=== PATIENT | male | born 1975 | race Caucasian/White ===

== ENCOUNTER 2016-11-25 17:15 | Observation (INO) | payer OTHER ==
[2016-11-25] MEDS ORDERED: ASPIRIN 81 MG PO STA (17:36)
[2016-11-25] MEDS ORDERED: NITROGLYCERIN OINT 1 INCH/GM PACKET TOPICAL STA (17:36)
--- NOTE | 2016-11-25 17:38 | ED ---
General Adult HPI - General Chief complaint: Chest Pain Stated complaint: Chest Pain Time Seen by Provider: 11/25/16 17:20 Source: patient, RN notes reviewed Mode of arrival: ambulatory Limitations: no limitations - History of Present Illness Initial comments: This is a 41-year-old male who presents emergency department with past history significant for diabetes and he states family history heart disease. Patient states he's been having intermittent chest pain for 2 months. In today his family doctor wanted him to come to the hospital to be evaluated and be admitted for his chest pain. Patient states he has some tingling on his left arm occasionally with chest pain. Patient states he doesn't have any shortness of breath or diaphoresis with chest pain. Patient denies any nausea or chest pain. Patient states he has a constant underlying soreness across his chest that is still there currently. Patient denies any abdominal pain patient denies any nausea or vomiting. Patient denies any fever chills or cough. - Related Data Home Medications Medication Instructions Recorded Confirmed Glimepiride [Amaryl] 1 mg PO BID@329,192911/25/16 11/25/16 Pregabalin [Lyrica] 50 mg PO TID@329,1129,192911/25/16 11/25/16 metFORMIN HCL [Glucophage] 1,000 mg PO BID@11/25/16 11/25/16 Allergies Allergy/AdvReac Type Severity Reaction Status Date / Time Penicillins Allergy Rash/Hives Verified 11/25/16 17:49 Review of Systems ROS Statement: Those systems with pertinent positive or pertinent negative responses have been documented in the HPI. ROS Other: All systems not noted in ROS Statement are negative. Past Medical History Past Medical History: Coronary Artery Disease (CAD), Diabetes Mellitus, Hyperlipidemia, Hypertension Additional Past Medical History / Comment(s): Neuropathy History of Any Multi-Drug Resistant Organisms: None Reported Past Surgical History: Tonsillectomy Additional Past Surgical History / Comment(s): Carpal Tunnel surgery Past Psychological History: No Psychological Hx Reported Smoking Status: Never smoker Past Alcohol Use History: None Reported Past Drug Use History: None Reported General Exam - General Exam Comments Initial Comments: GENERAL: Patient is well-developed and well-nourished. Patient is nontoxic and well- hydrated and is in mild distress. ENT: Neck is soft and supple. No significant lymphadenopathy is noted. Oropharynx is clear. Moist mucous membranes. Neck has full range of motion without eliciting any pain. . EYES: The sclera were anicteric and conjunctiva were pink and moist. Extraocular movements were intact and pupils were equal round and reactive to light. Eyelids were unremarkable. PULMONARY: Unlabored respirations. Good breath sounds bilaterally. No audible rales rhonchi or wheezing was noted. CARDIOVASCULAR: There is a regular rate and rhythm without any murmurs gallops or rubs. ABDOMEN: Soft and nontender with normal bowel sounds. No palpable organomegaly was noted. There is no palpable pulsatile mass. SKIN: Skin is clear with no lesions or rashes and otherwise unremarkable. NEUROLOGIC: Patient is alert and oriented x3. Cranial nerves II through XII are grossly intact. Motor and sensory are also intact. Normal speech, volume and content. Symmetrical smile. MUSCULOSKELETAL: Normal extremities with adequate strength and full range of motion. No lower extremity swelling or edema. No calf tenderness. LYMPHATICS: No significant lymphadenopathy is noted PSYCHIATRIC: Normal psychiatric evaluation. Normal interpersonal interactions appears functionally intact in deals appropriately with others. No signs of depression. No signs of anxiety. Limitations: no limitations Course Vital Signs 11/25/16 11/25/16 17:19 18:22 Temperature 97.9 F Pulse Rate 89 86 Respiratory 18 20 Rate Blood Pressure 179/104 151/80 O2 Sat by Pulse 95 95 Oximetry Medical Decision Making - Medical Decision Making EKG shows normal sinus rhythm at 70 bpm OK interval 160 QRS is 106 Q-T intervals 376 QTC is 428. Patient's EKG shows no ST segment elevation or depression or T wave abnormalities are noted. Patient's chest x-ray shows no acute abnormality. Spoke to Dr. Clemente he agreed to admit the patient admitted the patient I wrote admitting orders - Lab Data Result diagrams: 11/25/16 17:30 11/25/16 17:30 Lab Results 11/25/16 11/25/16 11/25/16 Range/Units 17:30 17:30 17:30 WBC 10.7 H (3.8-10.6) k/uL RBC 5.52 (4.30-5.90) m/uL Hgb 15.7 (13.0-17.5) gm/dL Hct 46.1 (39.0-53.0) % MCV 83.6 (80.0-100.0) fL MCH 28.4 (25.0-35.0) pg MCHC 33.9 (31.0-37.0) g/dL RDW 13.3 (11.5-15.5) % Plt Count 196 (150-450) k/uL Neutrophils % 68 % Lymphocytes % 22 % Monocytes % 4 % Eosinophils % 3 % Basophils % 1 % Neutrophils # 7.3 (1.3-7.7) k/uL Lymphocytes # 2.4 (1.0-4.8) k/uL Monocytes # 0.5 (0-1.0) k/uL Eosinophils # 0.3 (0-0.7) k/uL Basophils # 0.1 (0-0.2) k/uL PT (9.0-12.0) sec INR (<1.2) APTT (22.0-30.0) sec Sodium 140 (137-145) mmol/L Potassium 4.4 (3.5-5.1) mmol/L Chloride 104 (98-107) mmol/L Carbon Dioxide 26 (22-30) mmol/L Anion Gap 10 mmol/L BUN 15 (9-20) mg/dL Creatinine 0.87 (0.66-1.25) mg/dL Est GFR (MDRD) Af Amer >60 (>60 ml/min/1.73 sqM) Est GFR (MDRD) Non-Af >60 (>60 ml/min/1.73 sqM) Glucose 192 H (74-99) mg/dL Calcium 9.4 (8.4-10.2) mg/dL Magnesium 1.7 (1.6-2.3) mg/dL Total Bilirubin 0.6 (0.2-1.3) mg/dL AST 25 (17-59) U/L ALT 34 (21-72) U/L Alkaline Phosphatase 66 (38-126) U/L Total Creatine Kinase 63 (55-170) U/L CK-MB (CK-2) 1.1 (0.0-2.4) ng/mL CK-MB (CK-2) Rel Index 1.7 Troponin I <0.012 (0.000-0.034) ng/mL Total Protein 7.2 (6.3-8.2) g/dL Albumin 4.4 (3.5-5.0) g/dL 11/25/16 Range/Units 17:30 WBC (3.8-10.6) k/uL RBC (4.30-5.90) m/uL Hgb (13.0-17.5) gm/dL Hct (39.0-53.0) % MCV (80.0-100.0) fL MCH (25.0-35.0) pg MCHC (31.0-37.0) g/dL RDW (11.5-15.5) % Plt Count (150-450) k/uL Neutrophils % % Lymphocytes % % Monocytes % % Eosinophils % % Basophils % % Neutrophils # (1.3-7.7) k/uL Lymphocytes # (1.0-4.8) k/uL Monocytes # (0-1.0) k/uL Eosinophils # (0-0.7) k/uL Basophils # (0-0.2) k/uL PT 10.8 (9.0-12.0) sec INR 1.1 (<1.2) APTT 24.7 (22.0-30.0) sec Sodium (137-145) mmol/L Potassium (3.5-5.1) mmol/L Chloride (98-107) mmol/L Carbon Dioxide (22-30) mmol/L Anion Gap mmol/L BUN (9-20) mg/dL Creatinine (0.66-1.25) mg/dL Est GFR (MDRD) Af Amer (>60 ml/min/1.73 sqM) Est GFR (MDRD) Non-Af (>60 ml/min/1.73 sqM) Glucose (74-99) mg/dL Calcium (8.4-10.2) mg/dL Magnesium (1.6-2.3) mg/dL Total Bilirubin (0.2-1.3) mg/dL AST (17-59) U/L ALT (21-72) U/L Alkaline Phosphatase (38-126) U/L Total Creatine Kinase (55-170) U/L CK-MB (CK-2) (0.0-2.4) ng/mL CK-MB (CK-2) Rel Index Troponin I (0.000-0.034) ng/mL Total Protein (6.3-8.2) g/dL Albumin (3.5-5.0) g/dL Disposition Clinical Impression: Chest pain Disposition: ADMITTED IP TO THIS HOSP Referrals: Susan Jones MD [Primary Care Provider] - 1-2 days Time of Disposition: 18:57
[2016-11-25 17:49] LABS: Basophils # (A) 0.1 k/uL (0-0.2); Basophils % (A) 1 %; CH 27.8; CHCM 33.4; Eosinophils # (A) 0.3 k/uL (0-0.7); Eosinophils % (A) 3 %; HCT 46.1 % (39.0-53.0); HDW 2.67; HGB 15.7 gm/dL (13.0-17.5); Luc # (Auto) 0.16; Luc % (Auto) 2; Lymphocytes # (A) 2.4 k/uL (1.0-4.8); Lymphocytes % (A) 22 %; MCH 28.4 pg (25.0-35.0); MCHC 33.9 g/dL (31.0-37.0); MCV 83.6 fL (80.0-100.0); Monocytes # (A) 0.5 k/uL (0-1.0); Monocytes % (A) 4 %; Neutrophils # (A) 7.3 k/uL (1.3-7.7); Neutrophils % (A) 68 %; RBC 5.52 m/uL (4.30-5.90); RDW 13.3 % (11.5-15.5); WBC 10.7 k/uL (3.8-10.6); WBC (Perox) 10.39
[2016-11-25 17:59] LABS: INR 1.1 (<1.2); Partial Thromboplastin Time 24.7 sec (22.0-30.0); Prothrombin Time 10.8 sec (9.0-12.0)
--- NOTE | 2016-11-25 18:16 | XR ---
EXAMINATION TYPE: XR chest 2V DATE OF EXAM: 11/25/2016 COMPARISON: NONE HISTORY: Chest pain TECHNIQUE: Frontal and lateral views of the chest are obtained. FINDINGS: There is linear density at the left lung base. The other lung [place] are clear. Heart and mediastinum are normal. There are no hilar masses. IMPRESSION: Subsegmental atelectasis at the left lung base. Normal heart.
[2016-11-25 18:17] LABS: ALT 34 U/L (21-72); AST 25 U/L (17-59); Alkaline Phosphatase 66 U/L (38-126); Anion Gap 10 mmol/L; Blood Urea Nitrogen 15 mg/dL (9-20); Calcium 9.4 mg/dL (8.4-10.2); Carbon Dioxide 26 mmol/L (22-30); Chloride 104 mmol/L (98-107); Glucose 192 mg/dL (74-99); Magnesium 1.7 mg/dL (1.6-2.3); Non-African American GFR(MDRD) >60 (>60 ml/min/1.73 sqM); Potassium 4.4 mmol/L (3.5-5.1); Sodium 140 mmol/L (137-145); Total Bilirubin 0.6 mg/dL (0.2-1.3); Total Protein 7.2 g/dL (6.3-8.2)
[2016-11-25 18:25] LABS: Creatine Kinase 63 U/L (55-170)
[2016-11-25 18:37] LABS: Creatine Kinase MB 1.1 ng/mL (0.0-2.4); Troponin I <0.012 ng/mL (0.000-0.034)
[2016-11-25] MEDS ORDERED: NITROGLYCERIN SL TABS 0.4 MG TAB SUBLINGUAL PRN (18:58)
[2016-11-25 20:47] VITALS: RESP 18
[2016-11-25 20:57] LABS: Glucose,Whole Blood 118 mg/dL (75-99)
[2016-11-25 23:56] LABS: Creatine Kinase 52 U/L (55-170)
[2016-11-26 00:09] LABS: Creatine Kinase MB 0.8 ng/mL (0.0-2.4); Troponin I <0.012 ng/mL (0.000-0.034)
[2016-11-26] MEDS: PREGABALIN 50 MG CAP PO SCH ×2 (06:33→08:36)
[2016-11-26] MEDS: NITROGLYCERIN OINT 1 INCH/GM PACKET TOPICAL SCH ×2 (06:33→12:42)
[2016-11-26] MEDS: INSULIN LISPRO (humaLOG) 300 UNIT/3 ML VIAL SQ SCH ×3 (06:33→12:02)
[2016-11-26 06:39] LABS: Glucose,Whole Blood 105 mg/dL (75-99)
--- NOTE | 2016-11-26 07:31 | CONS ---
CONSULTATION A 41-year-old, obese, type 2 diabetic who came into the hospital upon referral by his primary care physician because he was having chest pain for nearly 3 weeks on and off, very nondescript in a random fashion without obvious relations to physical activity. He did not have any pain after arrival but complained of some tingling in the left arm, no shortness of breath or nausea. Troponins are normal. He is resting comfortably without symptoms. He has history of diabetes with some neuropathy. Denies any chest pain at the time of my evaluation. PAST MEDICAL HISTORY: 1. Type 2 diabetes. 2. Hypertension. 3. Possibly some peripheral neuropathy. MEDICATIONS: At home include Amaryl 1 mg b.i.d., metformin 1000 mg b.i.d., Lyrica 50 mg t.i.d. ALLERGY: PENICILLIN. REVIEW OF SYSTEMS: Unremarkable other than the above-mentioned facts. Specifically does not have any hematemesis or melena. Genitourinary symptoms, fever, chills or cough with expectoration. PHYSICAL EXAMINATION: His blood pressure is 118/70, pulse rate is 70 per minute, regular. HEENT: Unremarkable. Fundus was not examined by me. Neck is supple. No JVD. I do not hear a carotid bruit. Heart exam reveals S1, S2 heard normally without a rub, murmur or gallop. Lungs are clear. Abdomen is soft, nontender. Lower extremities reveal normal pulses. No edema. Central nervous system is normal. EKG revealed sinus mechanism with a J-point prominence and no acute changes. Nonspecific T-wave flattening was noted. Initial EKG was unremarkable. LABORATORY DATA: Revealed that troponins are normal. IMPRESSION: 1. Atypical chest pain. 2. Obesity. 3. Type 2 diabetes mellitus. RECOMMENDATION: I am recommending that we increase activity, perform an echocardiogram and a stress echo and if these are normal, he can be discharged. Physical exam was unremarkable. EKG does not show any significant changes. Minor nonspecific changes were noted. Thank you very much for the consult. MMODL / IJN: [id number] /
[2016-11-26 07:33] VITALS: BP 154/94; PULSE 62; TEMP 98.1
[2016-11-26 07:34] LABS: Cholesterol 154 mg/dL (<200); HDL Cholesterol 47 mg/dL (40-60)
[2016-11-26 08:09] LABS: Creatine Kinase 46 U/L (55-170)
[2016-11-26 08:21] LABS: Creatine Kinase MB 0.8 ng/mL (0.0-2.4); Troponin I <0.012 ng/mL (0.000-0.034)
[2016-11-26] MEDS ORDERED: ASPIRIN 325 MG TAB PO SCH (09:00)
[2016-11-26 12:01] LABS: Glucose,Whole Blood 121 mg/dL (75-99)
--- NOTE | 2016-11-26 12:24 | ECHOF ---
Referral Reason:chest pain MEASUREMENTS -------- HEIGHT: 177.8 cm WEIGHT: 118.8 kg BP: 154/94 RVIDd: 2.2 cm (< 3.3) IVSd: 1.2 cm (0.6 - 1.1) LVIDd: 4.0 cm (3.9 - 5.3) LVPWd: 1.2 cm (0.6 - 1.1) IVSs: 1.9 cm LVIDs: 2.8 cm LVPWs: 1.9 cm LAESV Index (A-L): 21.51 ml/m Ao Diam: 3.5 cm (2.0 - 3.7) AV Cusp: 2.1 cm (1.5 - 2.6) LA Diam: 4.0 cm (2.7 - 3.8) MV EXCURSION: 15.271 mm (> 18.000) MV EF SLOPE: 64 mm/s (70 - 150) EPSS: 1.4 cm MV E [place]: 0.97 m/s MV DecT: 230 ms MV A [place]: 0.89 m/s MV E/A Ratio: 1.09 RAP: 5.00 mmHg RVSP: 14.63 mmHg FINDINGS -------- Sinus rhythm with extra systolic beats. This was a technically adequate study. The left ventricular size is normal. There is mild concentric left ventricular hypertrophy. Overall left ventricular systolic function is normal with, an EF between 55 - 60 %. The right ventricle is normal in size and function. Normal LA size by volume 22+/-6 ml/m2. The right atrium is normal in size. Aortic valve is trileaflet and is mildly thickened. There is no evidence of aortic regurgitation. There is no evidence of aortic stenosis. The mitral valve leaflets are mildly thickened. There is trace mitral regurgitation. Trace tricuspid regurgitation present. Right ventricular systolic pressure is normal at < 35 mmHg. There is no evidence of pulmonary hypertension. The pulmonic valve was not well visualized. The aortic root size is normal. Normal inferior vena cava with normal inspiratory collapse consistent with estimated right atrial pressure of 5 mmHg. The pericardium is normal. There is no pericardial effusion. CONCLUSIONS -------- 1. Sinus rhythm with extra systolic beats. 2. Trace tricuspid regurgitation present. 3. Right ventricular systolic pressure is normal at < 35 mmHg. 4. There is no evidence of pulmonary hypertension. 5. The pulmonic valve was not well visualized. 6. The aortic root size is normal. 7. This was a technically adequate study. 8. The left ventricular size is normal. 9. There is mild concentric left ventricular hypertrophy. 10. Overall left ventricular systolic function is normal with, an EF between 55 - 60 %. 11. Normal LA size by volume 22+/-6 ml/m2. 12. Aortic valve is trileaflet and is mildly thickened. 13. The mitral valve leaflets are mildly thickened. 14. There is trace mitral regurgitation. LUMBER PILER OPERATOR: Richmond Luna RDCS
--- NOTE | 2016-11-26 12:53 | ECHOS ---
STRESS ECHOCARDIOGRAM STRESS ECHOCARDIOGRAM: INDICATIONS: Chest pain. MEDICATIONS:: Metformin, Lyrica, Amaryl. BASELINE HEART RATE: 71 BASELINE BLOOD PRESSURE: 147/76 MAXIMUM HEART RATE: 124 MAXIMUM BLOOD PRESSURE: 199/112 85% MPHR: 151 100% MPHR: 178 METS: 8.5 MAXIMUM STAGE REACHED: 3 TOTAL EXERCISE TIME: 7:00 CLINICAL INFORMATION: Baseline EKG revealed a normal sinus rhythm without significant ST-T changes. Patient walked on a standard Nicholas protocol for 7 minutes. Achieved a maximum heart rate of 124 beats per minute, developed fatigue and shortness of breath and therefore stress test was stopped. He did not have angina. There was no arrhythmia. EKG did not reveal any ST-segment changes to indicate ischemia. This is a inconclusive stress test with inadequate chronotropic response and decreased exercise capacity. Baseline echo images revealed normal wall motion and wall thickening of all segments. At peak exercise, a suboptimal heart rate of only 124 beats per minute. There was no evidence of ischemia on this stress echocardiogram. If ischemia is suspected, patient will probably benefit from a pharmacological stress test that can be done as an outpatient. IMPRESSION: 1. Limited exercise capacity with inconclusive stress test by EKG criteria because of inadequate chronotropic response and decreased exercise capacity. 2. Inconclusive stress echocardiogram but no ischemia at the above-mentioned stress level. 3. Results were discussed with the patient. MMKATHL / IJN: [id number] /
[2016-11-26 12:59] LABS: Hemoglobin A1C 7.9 % (4.2-6.1)
--- NOTE | 2016-11-26 13:43 | P.HPIM ---
History of Present Illness 39-year-old gentleman came in with the complaints of chest pain which appears to most musculoskeletal was sent in from Dr. Jones's clinic, chest pain is constant present everywhere predominantly in the chest area, reproducible chest pain not associated with food, nonpleuritic in nature. Patient was ordered by cardiology troponins are negative and EKG did not show any acute ST-T wave changes patient underwent stress test which is equal focal in nature because of which patient is being scheduled for Lexiscan stress test on Wednesday. Patient denied any fever chills cough runny nose. Patient chest pain is mostly [place]' s critical nature Review of Systems REVIEW OF SYSTEMS: CONSTITUTIONAL: No fever, no malaise, no fatigue. HEENT: No recent visual problems or hearing problems. Denied any sore throat. CARDIOVASCULAR: No orthopnea, PND, no palpitations, no syncope. PULMONARY: No shortness of breath, no cough, no hemoptysis. GASTROINTESTINAL: No diarrhea, no nausea, no vomiting, no abdominal pain. Normoactive bowel sounds. NEUROLOGICAL: No headaches, no weakness, no numbness. HEMATOLOGICAL: Denies any bleeding or petechiae. GENITOURINARY: Denies any burning micturition, frequency, or urgency. MUSCULOSKELETAL/RHEUMATOLOGICAL: Denies any joint pain, swelling, or any muscle pain. ENDOCRINE: Denies any polyuria or polydipsia. The rest of the 14-point review of systems is negative. Past Medical History Past Medical History: Coronary Artery Disease (CAD), Diabetes Mellitus, Hypertension, Osteoarthritis (OA) Additional Past Medical History / Comment(s): Neuropathy , TOOK MEDS IN PAST FOR BP-OFF OF THEM FOR 2 YEARS. KIDNEYS STONES.BACK INJURY 2010 HERNIATED DISCS , CHRONIC BACK PAIN History of Any Multi-Drug Resistant Organisms: None Reported Past Surgical History: Tonsillectomy Additional Past Surgical History / Comment(s): RT Carpal Tunnel surgery Past Anesthesia/Blood Transfusion Reactions: Previous Problems w/ Anesthesia Additional Past Anesthesia/Blood Transfusion Reaction / Comment(s): EARLY WAKING DURING CARPAL TUNNEL SX Smoking Status: Never smoker - Past Family History Father Family Medical History: Coronary Artery Disease (CAD), Myocardial Infarction ([place] ) Mother Family Medical History: Coronary Artery Disease (CAD), Myocardial Infarction ([place] ), Pneumonia Medications and Allergies Home Medications Medication Instructions Recorded Confirmed Type Glimepiride [Amaryl] 1 mg PO BID@0330,0 11/25/16 11/25/16 History Pregabalin [Lyrica] 50 mg PO TID@0330,1130,192911/25/16 11/25/16 History metFORMIN HCL [Glucophage] 1,000 mg PO BID@0330,0 11/25/16 11/25/16 History Allergies Allergy/AdvReac Type Severity Reaction Status Date / Time Penicillins Allergy Rash/Hives Verified 11/25/16 17:49 Physical Exam Vitals: Vital Signs Temp Pulse Pulse Resp BP BP Pulse Ox 11/26/16 07:31 98.1 F 62 18 154/94 93 L 11/26/16 04:00 18 11/26/16 03:58 97.9 F 67 18 116/74 96 11/26/16 00:00 18 11/25/16 23:42 97.9 F 72 18 147/80 94 L 11/25/16 20:27 100 11/25/16 20:14 83 157/73 98 11/25/16 20:00 97.9 F 74 18 173/95 95 11/25/16 18:22 86 20 151/80 95 11/25/16 17:19 97.9 F 89 18 179/104 95 Intake and Output 11/25/16 11/26/16 11/26/16 22:59 06:59 14:59 Intake Total 360 Balance 360 Intake: Oral 360 Other: Weight 119 kg PHYSICAL EXAMINATION: GENERAL: The patient is alert and oriented x3, not in any acute distress. Well developed, well nourished. HEENT: Pupils are round and equally reacting to light. EOMI. No scleral icterus. No conjunctival pallor. Normocephalic, atraumatic. No pharyngeal erythema. No thyromegaly. CARDIOVASCULAR: S1 and S2 present. No murmurs, rubs, or gallops. PULMONARY: Chest is clear to auscultation, no wheezing or crackles. ABDOMEN: Soft, nontender, nondistended, normoactive bowel sounds. No palpable organomegaly. Patient does have reproducible chest pain and bony point tenderness MUSCULOSKELETAL: No joint swelling or deformity. EXTREMITIES: No cyanosis, clubbing, or pedal edema. NEUROLOGICAL: Gross neurological examination did not reveal any focal deficits. SKIN: No rashes. Results CBC & Chem 7: 11/25/16 17:30 11/25/16 17:30 Labs: Abnormal Lab Results - Last 24 Hours (Table) 11/25/16 11/25/16 11/25/16 Range/Units 17:30 17:30 20:54 WBC 10.7 H (3.8-10.6) k/uL Glucose 192 H (74-99) mg/dL POC Glucose (mg/dL) 118 H (75-99) mg/dL Total Creatine Kinase (55-170) U/L 11/25/16 11/26/16 11/26/16 Range/Units 23:27 06:35 06:45 WBC (3.8-10.6) k/uL Glucose (74-99) mg/dL POC Glucose (mg/dL) 105 H (75-99) mg/dL Total Creatine Kinase 52 L 46 L (55-170) U/L 11/26/16 Range/Units 11:58 WBC (3.8-10.6) k/uL Glucose (74-99) mg/dL POC Glucose (mg/dL) 121 H (75-99) mg/dL Total Creatine Kinase (55-170) U/L Thrombosis Risk Factor Assmnt - Choose All That Apply Each Factor Represents 1 point: Age 41-60 years Thrombosis Risk Factor Assessment Total Risk Factor Score: 1 Thrombosis Risk Factor Assessment Level: Low Risk Assessment and Plan Plan: #1 chest pain: Reproducible chest pain musculoskeletal nature rule out acute coronary syndrome stresses as mentioned above patient will be discharged today Lexiscan stress test on next Wednesday #2 type disorders type II next and #3 hypertension For above-mentioned chronic medical problems patient will continue his home medications
--- NOTE | 2016-11-26 13:44 | P.DS ---
Providers Date of admission: 11/25/16 18:58 Attending physician: Catherine Clemente Consults: 11/25/16 18:58 Consult Physician Urgent Consulting Provider: [facility] Consult Reason/Comments: Chest pain Do you want consulting provider notified?: Yes Primary care physician: [facility] Course: Please refer to HPI Plan - Discharge Summary New Discharge Prescriptions: No Action metFORMIN HCL [Glucophage] 1,000 mg PO BID@ Pregabalin [Lyrica] 50 mg PO TID@ Glimepiride [Amaryl] 1 mg PO BID@ Discharge Medication List Glimepiride [Amaryl] 1 mg PO BID@11/25/16 [History] Pregabalin [Lyrica] 50 mg PO TID@11/25/16 [History] metFORMIN HCL [Glucophage] 1,000 mg PO BID@11/25/16 [History] Follow up Appointment(s)/Referral(s): Marguerite Brown MD [STAFF PHYSICIAN] - 12/01/16 10:00 am Susan Jones MD [Primary Care Provider] - 3 Days Patient Instructions/Handouts: Chest Pain (GEN) Discharge Disposition: HOME SELF-CARE
== END 2016-11-26 14:20 | disposition home or self-care (01) ==
LOC: EC 17:15 → 3OBS 18:58
PROVIDERS: ADMIT Internal Medicine; ATTEND Internal Medicine
DX: R07.89 Other chest pain (principal); R20.0 Anesthesia of skin; I10 Essential (primary) hypertension; E78.5 Hyperlipidemia, unspecified; E11.40 Type 2 diabetes mellitus with diabetic neuropathy, unspecified; E66.9 Obesity, unspecified; Z68.37 Body mass index [BMI] 37.0-37.9, adult; G89.29 Other chronic pain; M54.9 Dorsalgia, unspecified; I25.10 Atherosclerotic heart disease of native coronary artery without angina pectoris; Z79.84 Long term (current) use of oral hypoglycemic drugs; Z79.899 Other long term (current) drug therapy; Z88.0 Allergy status to penicillin
CPT/HCPCS: 99285; 36415; 93005; 93017; 93306; 93350; 80061; 80053; 83036; 82550 ×2; 82553 ×2; 83735; 84484 ×2; 85025; 85610; 85730; 71020; G0378 ×2

== ENCOUNTER → 2016-12-23 | Outpatient (CLI) | payer OTHER | END | disposition home or self-care (01) | LOC: RADMRIMAIN 06:21 | PROVIDERS: ATTEND Internal Medicine | DX: Z53.9 Procedure and treatment not carried out, unspecified reason (principal) ==

== ENCOUNTER 2019-05-11 10:18 | Emergency (ER) | payer OTHER ==
[2019-05-11] MEDS ORDERED: IBUPROFEN 600 MG TAB PO STA (10:35)
--- NOTE | 2019-05-11 11:34 | XR ---
EXAMINATION TYPE: XR lumbar spine 2 or 3V DATE OF EXAM: 05/11/2019 COMPARISON: NONE HISTORY: Fall, pain TECHNIQUE: Three-view lumbar spine FINDINGS: There 5 lumbar-type vertebral bodies. Pedicles are intact. Disc heights are preserved. Vert ebral body heights are preserved. IMPRESSION: 1. Normal three-view lumbar spine
--- NOTE | 2019-05-11 11:35 | ED ---
Fall HPI - General Chief Complaint: Fall Stated Complaint: fall/flank pain Time Seen by Provider: 05/11/19 10:28 Source: patient Mode of arrival: ambulatory - History of Present Illness Initial Comments: Patient is a 44-year-old male presenting to the emergency Department with complaints of right-sided low back pain after he slipped and fell on his porch this morning. Patient states he was walking out to start his truck early this morning when he slipped on his porch step and he fell backwards hitting the right side of his back on the cement porch. Patient states he did not hit his head. He was able to get up and walk around. Patient states he has pain with trunk rotation. He denies shortness of breath, chest pain. He is able to ambulate. He has no other complaints from this fall. The ER his vital signs are stable. - Related Data Home Medications Medication Instructions Recorded Confirmed Glimepiride [Amaryl] 1 mg PO BID@0400,1600 11/25/16 05/11/19 metFORMIN HCL [Glucophage] 1,000 mg PO BID@0400,1600 11/25/16 05/11/19 DULoxetine HCL [Cymbalta] 60 mg PO DAILY@0400 05/11/19 05/11/19 Losartan Potassium 100 mg PO DAILY@0400 05/11/19 05/11/19 Allergies Allergy/AdvReac Type Severity Reaction Status Date / Time Penicillins Allergy Rash/Hives Verified 05/11/19 11:24 Review of Systems ROS Statement: Those systems with pertinent positive or pertinent negative responses have been documented in the HPI. ROS Other: All systems not noted in ROS Statement are negative. Past Medical History Past Medical History: Coronary Artery Disease (CAD), Diabetes Mellitus, Hypertension, Osteoarthritis (OA) Additional Past Medical History / Comment(s): Neuropathy , TOOK MEDS IN PAST FOR BP-OFF OF THEM FOR 2 YEARS. KIDNEYS STONES.BACK INJURY 2010 HERNIATED DISCS, CHRONIC BACK PAIN History of Any Multi-Drug Resistant Organisms: None Reported Past Surgical History: Tonsillectomy Additional Past Surgical History / Comment(s): RT Carpal Tunnel surgery Past Anesthesia/Blood Transfusion Reactions: Previous Problems w/ Anesthesia Additional Past Anesthesia/Blood Transfusion Reaction / Comment(s): EARLY WAKING DURING CARPAL TUNNEL SX Past Psychological History: No Psychological Hx Reported Smoking Status: Never smoker Past Alcohol Use History: None Reported Past Drug Use History: None Reported - Past Family History Father Family Medical History: Coronary Artery Disease (CAD), Myocardial Infarction ([place]) Mother Family Medical History: Coronary Artery Disease (CAD), Myocardial Infarction ([place]), Pneumonia General Exam - General Exam Comments Initial Comments: GENERAL: Well-appearing, well-nourished and in no acute distress. HEAD: Atraumatic, normocephalic. EYES: Pupils equal round and reactive to light, extraocular movements intact, sclera anicteric, conjunctiva are normal. ENT: TMs normal, nares patent, oropharynx clear without exudates. Moist mucous membranes. NECK: Normal range of motion, supple without lymphadenopathy or JVD. LUNGS: Breath sounds clear to auscultation bilaterally and equal. No wheezes rales or rhonchi. HEART: Regular rate and rhythm without murmurs, rubs or gallops. ABDOMEN: Soft, nontender, normoactive bowel sounds. No guarding, no rebound. No masses appreciated. : Deferred EXTREMITIES: Normal range of motion, no pitting or edema. No clubbing or cyanosis. Pain with palpation of the right low back, right SI area. No right-sided rib pain. NEUROLOGICAL: Normal speech, normal gait. PSYCH: Normal mood, normal affect. SKIN: Warm, Dry, normal turgor, no rashes or lesions noted. Limitations: no limitations Course Vital Signs 05/11/19 05/11/19 05/11/19 10:23 10:26 11:45 Temperature 97.9 F 98.0 F Pulse Rate 74 83 Respiratory 16 20 19 Rate Blood Pressure 182/95 168/95 O2 Sat by Pulse 96 98 Oximetry Medical Decision Making - Medical Decision Making Patient is a 44-year-old male here for right-sided low back pain after he slipped and fell his porch this morning. No LOC, no head injury. No other complaints. X-rays of the lumbar spine show no acute fractures or dislocations. I discussed with patient this is most likely a muscle contusion. Patient was given ibuprofen in the ER. He will continue with Motrin as well as ice or heat to the area. Patient stable for discharge and he is in agreement with this plan of care. Return parameters were discussed with the patient and he verbalized understanding. Requesting work note. Disposition Clinical Impression: Fall, Contusion of lower back Disposition: HOME SELF-CARE Condition: Stable Instructions (If sedation given, give patient instructions): Contusion in Adults (ED) Additional Instructions: Please return to the Emergency Department if symptoms worsen or any other concerns. Continue to use Motrin for pain relief. He may use ice or heat to the area as well. Follow up with PCP as symptoms persist. Is patient prescribed a controlled substance at d/c from ED?: No Referrals: None,Stated [Primary Care Provider] - 1-2 days
[2019-05-11 11:47] VITALS: BP 168/95; PULSE 83; RESP 19; TEMP 98
== END 2019-05-11 11:46 | disposition home or self-care (01) ==
LOC: EC 10:18
DX: S30.0XXA Contusion of lower back and pelvis, initial encounter (principal); I25.10 Atherosclerotic heart disease of native coronary artery without angina pectoris; E11.40 Type 2 diabetes mellitus with diabetic neuropathy, unspecified; I10 Essential (primary) hypertension; M19.90 Unspecified osteoarthritis, unspecified site; G89.29 Other chronic pain; Z79.84 Long term (current) use of oral hypoglycemic drugs; Z88.0 Allergy status to penicillin; Z79.899 Other long term (current) drug therapy; W01.0XXA Fall on same level from slipping, tripping and stumbling without subsequent striking against object, initial encounter; Y93.01 Activity, walking, marching and hiking; Y92.89 Other specified places as the place of occurrence of the external cause
CPT/HCPCS: 72100; 99283

== ENCOUNTER 2020-01-09 16:28 | Emergency (ER) | payer OTHER ==
[2020-01-09 16:42] VITALS: RESP 18
[2020-01-09 17:35] LABS: Basophils % (A) 0 %; Eosinophils # (A) 0.4 k/uL (0-0.7); Eosinophils % (A) 3 %; HCT 50.8 % (39.0-53.0); HGB 16.7 gm/dL (13.0-17.5); Lymphocytes # (A) 2.2 k/uL (1.0-4.8); Lymphocytes % (A) 19 %; MCHC 32.8 g/dL (31.0-37.0); MCV 85.4 fL (80.0-100.0); Mean Platelet Volume 9.2; Monocytes # (A) 0.5 k/uL (0-1.0); Monocytes % (A) 5 %; Neutrophils # (A) 8.5 k/uL (1.3-7.7); Neutrophils % (A) 73 %; Platelet Count 214 k/uL (150-450); RBC 5.94 m/uL (4.30-5.90); RDW 12.7 % (11.5-15.5); WBC 11.7 k/uL (3.8-10.6)
--- NOTE | 2020-01-09 17:45 | XR ---
EXAMINATION TYPE: XR chest 2V DATE OF EXAM: 01/09/2020 COMPARISON: 11/25/2016 HISTORY: Body aches. Cough TECHNIQUE: FINDINGS: There is mild subsegmental atelectasis left lung base. Heart and mediastinum are normal. Th ere is no pleural effusion. There are no hilar masses. Bony thorax is intact. IMPRESSION: Minimal subsegmental atelectasis improved compared to old exam. Normal heart.
[2020-01-09 17:46] LABS: ALT 25 U/L (4-49); AST 27 U/L (17-59); African American GFR (CKD) >90 (>60 ml/min/1.73 sqM); Albumin 4.4 g/dL (3.5-5.0); Alkaline Phosphatase 76 U/L (38-126); Anion Gap 5 mmol/L; Blood Urea Nitrogen 20 mg/dL (9-20); Calcium 9.7 mg/dL (8.4-10.2); Carbon Dioxide 28 mmol/L (22-30); Chloride 102 mmol/L (98-107); Glucose 167 mg/dL (74-99); Non-African American GFR(CKD) >90 (>60 ml/min/1.73 sqM); Potassium 4.6 mmol/L (3.5-5.1); Sodium 135 mmol/L (137-145); Total Bilirubin 1.1 mg/dL (0.2-1.3); Total Protein 7.4 g/dL (6.3-8.2)
--- NOTE | 2020-01-09 18:05 | ED ---
Weakness HPI - General Source: patient Mode of arrival: ambulatory Limitations: no limitations <Ene Patel - Last Filed: 01/09/20 18:46> <Lashay Vides - Last Filed: 01/10/20 00:08> - General Chief complaint: Weakness Stated complaint: Cough, body aches Time Seen by Provider: 01/09/20 16:48 - History of Present Illness Initial comments: 44-year-old male presenting today for chief complaint of fatigue, cough, body aches. Patietn states that he has been fatigued, weak all over with a dry cough, slightly sore throat and body aches. He states at times especially after coughing he feels SOB Denies current SOB. Denies chest pain or leg swelling. Endorses diarrhea x 4 days. Denies vomiting abdominal pain or nausea, Denies rashes. Patient denies bloody stools. Patient appears well nontoxic in no acute distress on arrival. Pt concerned of covid 19. (Ene Patel) - Related Data Home Medications Medication Instructions Recorded Confirmed Glimepiride [Amaryl] 1 mg PO BID@0400,1600 11/25/16 05/11/19 metFORMIN HCL [Glucophage] 1,000 mg PO BID@0400,1600 11/25/16 05/11/19 DULoxetine HCL [Cymbalta] 60 mg PO DAILY@0400 05/11/19 05/11/19 Losartan Potassium 100 mg PO DAILY@0400 05/11/19 05/11/19 Previous Rx's Medication Instructions Recorded Albuterol Inhaler [Ventolin Hfa 1 puff INHALATION RT-QID PRN 30 01/09/20 Inhaler] Days #60 puff Allergies Allergy/AdvReac Type Severity Reaction Status Date / Time Penicillins Allergy Rash/Hives Verified 01/09/20 16:42 Review of Systems ROS Other: All systems not noted in ROS Statement are negative. <Ene Patel - Last Filed: 01/09/20 18:46> ROS Other: All systems not noted in ROS Statement are negative. <Lashay Vides - Last Filed: 01/10/20 00:08> ROS Statement: Those systems with pertinent positive or pertinent negative responses have been documented in the HPI. Past Medical History Past Medical History: Coronary Artery Disease (CAD), Diabetes Mellitus, Hypertension, Osteoarthritis (OA) Additional Past Medical History / Comment(s): Neuropathy , TOOK MEDS IN PAST FOR BP-OFF OF THEM FOR 2 YEARS. KIDNEYS STONES.BACK INJURY 2010 HERNIATED DISCS, CHRONIC BACK PAIN History of Any Multi-Drug Resistant Organisms: None Reported Past Surgical History: Tonsillectomy Additional Past Surgical History / Comment(s): RT Carpal Tunnel surgery Past Anesthesia/Blood Transfusion Reactions: Previous Problems w/ Anesthesia Additional Past Anesthesia/Blood Transfusion Reaction / Comment(s): EARLY WAKING DURING CARPAL TUNNEL SX Past Psychological History: No Psychological Hx Reported Smoking Status: Never smoker Past Alcohol Use History: None Reported Past Drug Use History: None Reported - Past Family History Father Family Medical History: Coronary Artery Disease (CAD), Myocardial Infarction ([place]) Mother Family Medical History: Coronary Artery Disease (CAD), Myocardial Infarction ([place]), Pneumonia <Ene Patel L - Last Filed: 01/09/20 18:46> General Exam Limitations: no limitations <Ene Patel L - Last Filed: 01/09/20 18:46> - General Exam Comments Initial Comments: General: The patient is awake and alert, in no distress, and does not appear acutely ill. Eye: + 3 mm pupils are equal, round and reactive to light, extra-ocular movements are intact. No nystagmus. There is normal conjunctiva bilaterally. No signs of icterus. Ears, nose, mouth and throat: There are moist mucous membranes and no oral lesions. Oropharynx not erythematous uvula midline Cardiovascular: There is a regular rate and rhythm. No murmur, rub or gallop is appreciated. Respiratory: Lungs are clear to auscultation, respirations are non-labored, breath sounds are equal. No wheezes, stridor, rales, or rhonchi. Gastrointestinal: Soft, non-distended, non-tender abdomen without masses or organomegaly noted. There is no rebound or guarding present. Musculoskeletal: Normal ROM, no tenderness. Strength 5/5. Sensation intact. Radial pulses equal bilaterally 2+. Neurological: A&O x 3. CN II-XII intact grossly, There are no obvious motor or sensory deficits. Coordination appears grossly intact. Speech is normal. Skin: Skin is warm and dry and no rashes or lesions are noted. Psychiatric: Cooperative, appropriate mood & affect, normal judgment. (Ene Patel) Course Vital Signs 01/09/20 01/09/20 01/09/20 16:38 17:29 18:37 Temperature 98.8 F 98.0 F Pulse Rate 82 70 80 Respiratory 18 18 18 Rate Blood Pressure 168/105 156/91 149/95 O2 Sat by Pulse 99 97 98 Oximetry Medical Decision Making - Lab Data Result diagrams: 01/09/20 17:14 01/09/20 17:14 <Ene Patel - Last Filed: 01/09/20 18:46> - Lab Data Result diagrams: 01/09/20 17:14 01/09/20 17:14 <Lashay Vides - Last Filed: 01/10/20 00:08> - Medical Decision Making Labs stable. CXR clear. Pt does not appear in respiratory distress, BP elevated (hx HTN), pt is not hypoxic,HR within acceptable limits. At this time I feel patient is stable for discharge with PCP f/u and self quarantining at home. I discussed case reviewing cxr with attending Dr. Vides who is agreeable to care plan and discharge. (Ene Patel) I was available for consultation in the emergency department. The history and physical exam were done by the midlevel provider. I was consulted for this patients care. I reviewed the case with the midlevel provider and based on their presentation of the patient, I agree with the assessment, medical decision making and plan of care as documented. Chart was dictated using [employer] dictation software. Attempts were made to correct any dictation errors however some typographical errors may persist. Patient was seen during a national state of emergency due to the Covid-19 pandemic. (Lashay Vides) - Lab Data Lab Results 01/09/20 01/09/20 01/09/20 Range/Units 17:14 17:14 17:15 WBC 11.7 H (3.8-10.6) k/uL RBC 5.94 H (4.30-5.90) m/uL Hgb 16.7 (13.0-17.5) gm/dL Hct 50.8 (39.0-53.0) % MCV 85.4 (80.0-100.0) fL MCH 28.0 (25.0-35.0) pg MCHC 32.8 (31.0-37.0) g/dL RDW 12.7 (11.5-15.5) % Plt Count 214 (150-450) k/uL Neutrophils % 73 % Lymphocytes % 19 % Monocytes % 5 % Eosinophils % 3 % Basophils % 0 % Neutrophils # 8.5 H (1.3-7.7) k/uL Lymphocytes # 2.2 (1.0-4.8) k/uL Monocytes # 0.5 (0-1.0) k/uL Eosinophils # 0.4 (0-0.7) k/uL Basophils # 0.0 (0-0.2) k/uL Sodium 135 L (137-145) mmol/L Potassium 4.6 (3.5-5.1) mmol/L Chloride 102 (98-107) mmol/L Carbon Dioxide 28 (22-30) mmol/L Anion Gap 5 mmol/L BUN 20 (9-20) mg/dL Creatinine 0.91 (0.66-1.25) mg/dL Est GFR (CKD-EPI)AfAm >90 (>60 ml/min/1.73 sqM) Est GFR (CKD-EPI)NonAf >90 (>60 ml/min/1.73 sqM) Glucose 167 H (74-99) mg/dL Calcium 9.7 (8.4-10.2) mg/dL Total Bilirubin 1.1 (0.2-1.3) mg/dL AST 27 (17-59) U/L ALT 25 (4-49) U/L Alkaline Phosphatase 76 (38-126) U/L Troponin I <0.012 (0.000-0.034) ng/mL Total Protein 7.4 (6.3-8.2) g/dL Albumin 4.4 (3.5-5.0) g/dL Disposition Is patient prescribed a controlled substance at d/c from ED?: No Time of Disposition: 18:03 <Ene Patel - Last Filed: 01/09/20 18:46> <Lashay Vides - Last Filed: 01/10/20 00:08> Clinical Impression: Cough, Generalized weakness, Fatigue Disposition: HOME SELF-CARE Condition: Good Instructions (If sedation given, give patient instructions): Viral Syndrome (ED) Additional Instructions: Please use medication as discussed. Please follow-up with family doctor in the next 2 days. Please return to emergency room if the symptoms increase or worsen or for any other concerns. Prescriptions: Albuterol Inhaler [Ventolin Hfa Inhaler] 1 puff INHALATION RT-QID PRN 30 Days #60 puff PRN Reason: Wheezing Referrals: Nonstaff,Physician [Primary Care Provider] - 1-2 days
[2020-01-09 18:38] VITALS: BP 149/95; PULSE 80; TEMP 98
== END 2020-01-09 18:38 | disposition home or self-care (01) ==
LOC: EC 16:28
DX: R53.1 Weakness (principal); R05 Cough; R53.83 Other fatigue; E11.40 Type 2 diabetes mellitus with diabetic neuropathy, unspecified; I10 Essential (primary) hypertension; I25.10 Atherosclerotic heart disease of native coronary artery without angina pectoris; Z79.84 Long term (current) use of oral hypoglycemic drugs; Z79.899 Other long term (current) drug therapy; Z88.0 Allergy status to penicillin
CPT/HCPCS: 36415; 93005; 80053; 84484; 85025; 71046; 99285; U0003

== ENCOUNTER 2020-02-20 15:33 | Emergency (ER) | payer OTHER ==
[2020-02-20 15:42] VITALS: BP 140/88; PULSE 71; RESP 20; TEMP 98.1
[2020-02-20 16:12] LABS: Glucose,Whole Blood 322 mg/dL (75-99)
--- NOTE | 2020-02-20 16:37 | ED ---
General Adult HPI - General Chief complaint: Upper Respiratory Infection Stated complaint: Fever,Loss of taste, Cough Time Seen by Provider: 02/20/20 15:57 Source: patient, RN notes reviewed Mode of arrival: wheelchair Limitations: no limitations - History of Present Illness Initial comments: This is a 44-year-old male presents emergency Department chief complaint of not feeling well over the last 8 days. Patient states she's had body aches, fever, chills, nausea, cough, shortness of breath. Patient denies any sick contacts. He states that he has no interest in eating or drinking sauce sense of taste and smell. Patient states that he has no known exposure to covid. Patient states he is a diabetic is recent checked his blood sugar. He has not taken his medications. Patient states she's been hydrating well. - Related Data Home Medications Medication Instructions Recorded Confirmed Glimepiride [Amaryl] 1 mg PO BID@0400,1600 11/25/16 05/11/19 metFORMIN HCL [Glucophage] 1,000 mg PO BID@0400,1600 11/25/16 05/11/19 DULoxetine HCL [Cymbalta] 60 mg PO DAILY@0400 05/11/19 05/11/19 Losartan Potassium 100 mg PO DAILY@0400 05/11/19 05/11/19 Previous Rx's Medication Instructions Recorded Albuterol Inhaler [Ventolin Hfa 1 puff INHALATION RT-QID PRN 30 01/09/20 Inhaler] Days #60 puff Allergies Allergy/AdvReac Type Severity Reaction Status Date / Time Penicillins Allergy Rash/Hives Verified 02/20/20 15:42 Review of Systems ROS Statement: Those systems with pertinent positive or pertinent negative responses have been documented in the HPI. ROS Other: All systems not noted in ROS Statement are negative. Past Medical History Past Medical History: Coronary Artery Disease (CAD), Diabetes Mellitus, Hypertension, Osteoarthritis (OA) Additional Past Medical History / Comment(s): Neuropathy , TOOK MEDS IN PAST FOR BP-OFF OF THEM FOR 2 YEARS. KIDNEYS STONES.BACK INJURY 2009 HERNIATED DISCS, C HRONIC BACK PAIN History of Any Multi-Drug Resistant Organisms: None Reported Past Surgical History: Tonsillectomy Additional Past Surgical History / Comment(s): RT Carpal Tunnel surgery Past Anesthesia/Blood Transfusion Reactions: Previous Problems w/ Anesthesia Additional Past Anesthesia/Blood Transfusion Reaction / Comment(s): EARLY WAKING DURING CARPAL TUNNEL SX Past Psychological History: No Psychological Hx Reported Smoking Status: Never smoker Past Alcohol Use History: None Reported Past Drug Use History: None Reported - Past Family History Father Family Medical History: Coronary Artery Disease (CAD), Myocardial Infarction ([place]) Mother Family Medical History: Coronary Artery Disease (CAD), Myocardial Infarction ([place]), Pneumonia General Exam Limitations: no limitations General appearance: alert, in no apparent distress Head exam: Present: atraumatic, normocephalic, normal inspection Eye exam: Present: normal appearance, PERRL, EOMI. Absent: scleral icterus, conjunctival injection, periorbital swelling ENT exam: Present: normal exam, mucous membranes moist Neck exam: Present: normal inspection, full ROM. Absent: tenderness, meningismus, lymphadenopathy Respiratory exam: Present: normal lung sounds bilaterally. Absent: respiratory distress, wheezes, rales, rhonchi, stridor Cardiovascular Exam: Present: regular rate, normal rhythm, normal heart sounds. Absent: systolic murmur, diastolic murmur, rubs, gallop, clicks GI/Abdominal exam: Present: soft, normal bowel sounds. Absent: distended, tenderness, guarding, rebound, rigid Neurological exam: Present: alert, oriented X3 Skin exam: Present: warm, dry, intact, normal color. Absent: rash Course Vital Signs 02/20/20 15:37 Temperature 98.1 F Pulse Rate 71 Respiratory 20 Rate Blood Pressure 140/88 O2 Sat by Pulse 96 Oximetry Medical Decision Making - Medical Decision Making X-ray shows mild pulmonary infiltrate, patient is not hypoxic, in no significant respiratory distress. Patient has not been taking his oral medications for his diabetes blood sugar is elevated at 3:30. Patient states that take his meds when he gets home offered medications here declines. Patient instructed to start vitamin see, D3, zinc he is return for any worsening change in her breathing or any other symptoms. Patient recently plan rediscussed to reduce though secondary to hypoglycemia this will be held at this point. - Lab Data Lab Results 02/20/20 02/20/20 Range/Units 16:11 16:12 POC Glucose (mg/dL) 322 H (75-99) mg/dL POC Glu Paper Cutter ID Gi Mae Coronavirus (PCR) Detected A (Not Detectd) Disposition Clinical Impression: COVID-19 Disposition: HOME SELF-CARE Condition: Stable Instructions (If sedation given, give patient instructions): Upper Respiratory Infection (ED) Additional Instructions: Take [id number] vitamin C, D3, zinc. Please return to the Emergency Department if symptoms worsen or any other concerns. Is patient prescribed a controlled substance at d/c from ED?: No Referrals: Nonstaff,Physician [Primary Care Provider] - 1-2 days Time of Disposition: 17:19
--- NOTE | 2020-02-20 17:02 | XR ---
EXAMINATION TYPE: XR chest 2V DATE OF EXAM: 02/20/2020 COMPARISON: 01/09/2020 HISTORY: Cough. Body aches. Congestion. TECHNIQUE: FINDINGS: There is some patchy infiltrate in the right lung. There is a minimal left perihilar infilt rate. Heart size is normal. Mediastinum is normal. There is no heart failure. There is no pleural eff usion. IMPRESSION: Mild bilateral pneumonia is essentially new compared to old exam. No heart failure.
== END 2020-02-20 17:27 | disposition home or self-care (01) ==
LOC: EC 15:33
DX: U07.1 COVID-19 (principal); R91.8 Other nonspecific abnormal finding of lung field; I10 Essential (primary) hypertension; E11.40 Type 2 diabetes mellitus with diabetic neuropathy, unspecified; G89.29 Other chronic pain; M54.9 Dorsalgia, unspecified; M19.90 Unspecified osteoarthritis, unspecified site; Z79.84 Long term (current) use of oral hypoglycemic drugs; Z79.899 Other long term (current) drug therapy; Z88.0 Allergy status to penicillin
CPT/HCPCS: 36415; 71046; 87635; 99283

== ENCOUNTER 2021-10-29 23:03 | Emergency (ER) | payer BC, OTHER ==
[2021-10-29 23:20] VITALS: BP 153/92; PULSE 84; RESP 18; TEMP 97.8
[2021-10-29 23:33] LABS: Glucose,Whole Blood 310 mg/dL (70-110)
[2021-10-29 23:45] LABS: Basophils # (A) 0.1 k/uL (0-0.2); Basophils % (A) 0 %; Eosinophils # (A) 0.2 k/uL (0-0.7); Eosinophils % (A) 1 %; HCT 47.1 % (39.0-53.0); HGB 14.9 gm/dL (13.0-17.5); Lymphocytes # (A) 1.7 k/uL (1.0-4.8); Lymphocytes % (A) 12 %; MCH 27.1 pg (25.0-35.0); MCHC 31.6 g/dL (31.0-37.0); MCV 85.6 fL (80.0-100.0); Monocytes # (A) 0.5 k/uL (0-1.0); Monocytes % (A) 3 %; Neutrophils # (A) 11.7 k/uL (1.3-7.7); Neutrophils % (A) 82 %; Platelet Count 157 k/uL (150-450); RBC 5.51 m/uL (4.30-5.90); WBC 14.2 k/uL (3.8-10.6)
[2021-10-30 00:18] LABS: ALT 23 U/L (4-49); AST 27 U/L (17-59); African American GFR (CKD) >90 (>60 ml/min/1.73 sqM); Albumin 4.5 g/dL (3.5-5.0); Alkaline Phosphatase 76 U/L (38-126); Anion Gap 19 mmol/L; Blood Urea Nitrogen 19 mg/dL (9-20); Calcium 8.9 mg/dL (8.4-10.2); Carbon Dioxide 20 mmol/L (22-30); Chloride 100 mmol/L (98-107); Glucose 314 mg/dL (74-99); Non-African American GFR(CKD) 84 (>60 ml/min/1.73 sqM); Potassium 4.1 mmol/L (3.5-5.1); Sodium 139 mmol/L (137-145); Total Bilirubin 0.4 mg/dL (0.2-1.3); Total Protein 7.1 g/dL (6.3-8.2)
[2021-10-30 00:25] LABS: Alcohol 178 mg/dL
--- NOTE | 2021-10-30 00:27 | CT ---
EXAMINATION TYPE: CT brain wo con DATE OF EXAM: 10/30/2021 COMPARISON: None HISTORY: ams CT DLP: 1141.4 mGycm Automated exposure control for dose reduction was used. Images obtained of the brain with no contrast. Ventricles are normal size. There is no mass effect nor midline shift. No sign of intracranial hemorr narciso. Calvarium is intact. Skull base is intact. IMPRESSION: Negative unenhanced head CT scan.
--- NOTE | 2021-10-30 00:29 | XR ---
EXAMINATION TYPE: XR chest 1V portable DATE OF EXAM: 10/30/2021 COMPARISON: 02/20/2020 HISTORY: Cough and congestion. Altered mental status TECHNIQUE: FINDINGS: There is poor inspiration with elevation of the diaphragms. Some patchy atelectasis in the lower lung [place]. No definite heart failure. Exam limited by the poor inspiration. IMPRESSION: There is atelectasis at the lung bases which is increased compared to the old exam. No ob vious heart failure.
--- NOTE | 2021-10-30 03:57 | ED ---
General Adult HPI - General Chief complaint: Nausea/Vomiting/Diarrhea Stated complaint: vomiting Time Seen by Provider: 10/29/21 23:18 Source: patient, family, EMS Mode of arrival: EMS Limitations: altered mental status (Appears intoxicated) - History of Present Illness Initial comments: This patient's 46-year-old man brought to have evaluation after she had passed out at a bar. He reportedly had moderately large amount of alcohol drink. When I interview the patient, he denies pain or trauma. Otherwise not giving much history -: minutes(s) - Related Data Home Medications Medication Instructions Recorded Confirmed Glimepiride [Amaryl] 1 mg PO BID@0400,1600 11/25/16 05/11/19 metFORMIN HCL [Glucophage] 1,000 mg PO BID@0400,1600 11/25/16 05/11/19 DULoxetine HCL [Cymbalta] 60 mg PO DAILY@0400 05/11/19 05/11/19 Losartan Potassium 100 mg PO DAILY@0400 05/11/19 05/11/19 Previous Rx's Medication Instructions Recorded Albuterol Inhaler [Ventolin Hfa 1 puff INHALATION RT-QID PRN 30 01/09/20 Inhaler] Days #60 puff Allergies Allergy/AdvReac Type Severity Reaction Status Date / Time Penicillins Allergy Rash/Hives Verified 02/20/20 15:42 Review of Systems ROS Statement: Those systems with pertinent positive or pertinent negative responses have been documented in the HPI. ROS Other: All systems not noted in ROS Statement are negative. Limitations: ROS unobtainable due to patients medical condition (Intoxicated) Cardiovascular: Denies: chest pain Gastrointestinal: Reports: vomiting Musculoskeletal: Denies: back pain Neurological: Denies: headache Past Medical History Past Medical History: Coronary Artery Disease (CAD), Diabetes Mellitus, Hypertension, Osteoarthritis (OA) Additional Past Medical History / Comment(s): Neuropathy , TOOK MEDS IN PAST FOR BP-OFF OF THEM FOR 2 YEARS. KIDNEYS STONES.BACK INJURY 2010 HERNIATED DISCS, CHRONIC BACK PAIN History of Any Multi-Drug Resistant Organisms: None Reported Past Surgical History: Tonsillectomy Additional Past Surgical History / Comment(s): RT Carpal Tunnel surgery Past Anesthesia/Blood Transfusion Reactions: Previous Problems w/ Anesthesia Additional Past Anesthesia/Blood Transfusion Reaction / Comment(s): EARLY WAKING DURING CARPAL TUNNEL SX Past Psychological History: No Psychological Hx Reported Smoking Status: Never smoker Past Alcohol Use History: None Reported Past Drug Use History: None Reported - Past Family History Father Family Medical History: Coronary Artery Disease (CAD), Myocardial Infarction (GA) Mother Family Medical History: Coronary Artery Disease (CAD), Myocardial Infarction (GA), Pneumonia General Exam General appearance: alert, appears intoxicated Head exam: Present: atraumatic, normocephalic Eye exam: Present: normal appearance, PERRL, EOMI, nystagmus. Absent: scleral icterus, conjunctival injection Neck exam: Present: normal inspection, full ROM. Absent: meningismus Respiratory exam: Present: normal lung sounds bilaterally. Absent: respiratory distress, wheezes, rales, rhonchi, stridor, chest wall tenderness Cardiovascular Exam: Present: regular rate, normal rhythm, normal heart sounds. Absent: systolic murmur, diastolic murmur, rubs, gallop GI/Abdominal exam: Present: soft. Absent: distended, tenderness, guarding, rebound, rigid, mass Extremities exam: Present: normal inspection, normal capillary refill Back exam: Present: normal inspection Neurological exam: Present: altered. Absent: motor sensory deficit Skin exam: Present: warm, dry, intact, normal color. Absent: rash Course Vital Signs 10/29/21 23:13 Temperature 97.8 F Pulse Rate 84 Respiratory 18 Rate Blood Pressure 153/92 O2 Sat by Pulse 95 Oximetry EKG Findings - EKG Results: EKG: interpreted by JO, sinus rhythm - Blocks, [place], Hypertrophy, ST Abn: AV and intraventricular conduction: 1 AV block Chamber hypertrophy or enlargement: left ventricular hypertrophy or enlargement (LVE) Medical Decision Making - Lab Data Result diagrams: 10/29/21 23:29 10/29/21 23:29 Lab Results 10/29/21 10/29/21 10/29/21 Range/Units 23:29 23:29 23:29 WBC 14.2 H (3.8-10.6) k/uL RBC 5.51 (4.30-5.90) m/uL Hgb 14.9 (13.0-17.5) gm/dL Hct 47.1 (39.0-53.0) % MCV 85.6 (80.0-100.0) fL MCH 27.1 (25.0-35.0) pg MCHC 31.6 (31.0-37.0) g/dL RDW 13.0 (11.5-15.5) % Plt Count 157 (150-450) k/uL MPV 9.0 Neutrophils % 82 % Lymphocytes % 12 % Monocytes % 3 % Eosinophils % 1 % Basophils % 0 % Neutrophils # 11.7 H (1.3-7.7) k/uL Lymphocytes # 1.7 (1.0-4.8) k/uL Monocytes # 0.5 (0-1.0) k/uL Eosinophils # 0.2 (0-0.7) k/uL Basophils # 0.1 (0-0.2) k/uL Sodium 139 (137-145) mmol/L Potassium 4.1 (3.5-5.1) mmol/L Chloride 100 (98-107) mmol/L Carbon Dioxide 20 L (22-30) mmol/L Anion Gap 19 mmol/L BUN 19 (9-20) mg/dL Creatinine 1.06 (0.66-1.25) mg/dL Est GFR (CKD-EPI)AfAm >90 (>60 ml/min/1.73 sqM) Est GFR (CKD-EPI)NonAf 84 (>60 ml/min/1.73 sqM) Glucose 314 H (74-99) mg/dL POC Glucose (mg/dL) (70-110) mg/dL POC Glu [place] ID Calcium 8.9 (8.4-10.2) mg/dL Total Bilirubin 0.4 (0.2-1.3) mg/dL AST 27 (17-59) U/L ALT 23 (4-49) U/L Alkaline Phosphatase 76 (38-126) U/L Troponin I <0.012 (0.000-0.034) ng/mL Total Protein 7.1 (6.3-8.2) g/dL Albumin 4.5 (3.5-5.0) g/dL Serum Alcohol 178 mg/dL 10/29/21 Range/Units 23:32 WBC (3.8-10.6) k/uL RBC (4.30-5.90) m/uL Hgb (13.0-17.5) gm/dL Hct (39.0-53.0) % MCV (80.0-100.0) fL MCH (25.0-35.0) pg MCHC (31.0-37.0) g/dL RDW (11.5-15.5) % Plt Count (150-450) k/uL MPV Neutrophils % % Lymphocytes % % Monocytes % % Eosinophils % % Basophils % % Neutrophils # (1.3-7.7) k/uL Lymphocytes # (1.0-4.8) k/uL Monocytes # (0-1.0) k/uL Eosinophils # (0-0.7) k/uL Basophils # (0-0.2) k/uL Sodium (137-145) mmol/L Potassium (3.5-5.1) mmol/L Chloride (98-107) mmol/L Carbon Dioxide (22-30) mmol/L Anion Gap mmol/L BUN (9-20) mg/dL Creatinine (0.66-1.25) mg/dL Est GFR (CKD-EPI)AfAm (>60 ml/min/1.73 sqM) Est GFR (CKD-EPI)NonAf (>60 ml/min/1.73 sqM) Glucose (74-99) mg/dL POC Glucose (mg/dL) 310 H (70-110) mg/dL POC Glu Councilman ID Zori, Caprice Calcium (8.4-10.2) mg/dL Total Bilirubin (0.2-1.3) mg/dL AST (17-59) U/L ALT (4-49) U/L Alkaline Phosphatase (38-126) U/L Troponin I (0.000-0.034) ng/mL Total Protein (6.3-8.2) g/dL Albumin (3.5-5.0) g/dL Serum Alcohol mg/dL Disposition Clinical Impression: Alcohol intoxication Disposition: HOME SELF-CARE Condition: Good Instructions (If sedation given, give patient instructions): Alcohol Intoxication (ED) Is patient prescribed a controlled substance at d/c from ED?: No Referrals: Jeannie Rasheed DO [Primary Care Provider] - 1-2 days
== END 2021-10-30 04:14 | disposition home or self-care (01) ==
LOC: EC 23:03
DX: F10.929 Alcohol use, unspecified with intoxication, unspecified (principal); I25.10 Atherosclerotic heart disease of native coronary artery without angina pectoris; E11.9 Type 2 diabetes mellitus without complications; I10 Essential (primary) hypertension; M19.90 Unspecified osteoarthritis, unspecified site; Z88.0 Allergy status to penicillin; Z79.84 Long term (current) use of oral hypoglycemic drugs; Z79.899 Other long term (current) drug therapy
CPT/HCPCS: 36415; 70450; 71045; 80053; 80320; 84484; 85025; 93005; 99285